=== PATIENT | male | born 1990 | race African-American/Black ===

== ENCOUNTER 2023-02-28 17:03 | Emergency (ER) | payer OTHER ==
[~2023-02-28] VITALS: Ht 180.3 cm; Wt 86.2 kg
--- NOTE | 2023-02-28 17:55 | NUR ---
BIBSELF CC THROAT PAIN FOR 1WK. CLAIMS GEN BODY ACHE FEBRILE TOOK TYLENOL. PT VOMITED NO LOSS OF APPETITE. AT HOME PT CLAIMS TEMP IS 101.3. NO S/S CR DISTRESS. DR BRAUN MADE AWARE. PT PUT ON MONITIOR AND PULSE. NURSING CARE DONE. AWAITING LAURA EMD ORDERS
--- NOTE | 2023-02-28 18:15 | NUR ---
iv inserted BLD COLLECTED SENT TO LAB
[2023-02-28 18:22] LABS: BASOPHILS % (AUTO) 0.4 % (0.0-2.0); EOSINOPHILS % (AUTO) 1.5 % (0.0-6.0); HEMATOCRIT 41 % (39-51); HEMOGLOBIN 13.3 g/dL (13.5-17.5); LYMPHOCYTES # (AUTO) 2.5 K/uL (0.8-4.8); LYMPHOCYTES % (AUTO) 28.7 % (20.0-44.0); MEAN CORPUSCULAR HGB CONC 33 g/dl (31.0-36.0); MEAN CORPUSCULAR VOLUME 92 fL (80-96); MONOCYTES # (AUTO) 0.5 K/uL (0.1-1.30); MONOCYTES % (AUTO) 6.1 % (2.0-12.0); NEUTROPHILS # (AUTO) 5.6 K/uL (1.8-8.9); NEUTROPHILS % (AUTO) 63.3 % (43.0-81.0); PLATELET COUNT (AUTO) 217 K/uL (150-450); RED BLOOD CELL COUNT(AUTO) 4.48 MIL/uL (4.5-6.0); WHITE BLOOD COUNT (AUTO) 8.8 K/uL (4.3-11.0)
[2023-02-28] MEDS ORDERED: FAMOTIDINE/PF INJ 20 MG/2 ML VIAL IV ONE ×2 (18:25→18:30)
[2023-02-28] MEDS ORDERED: ONDANSETRON HCL/PF 4 MG/2 ML VIAL ONE (18:25)
[2023-02-28] MEDS ORDERED: ONDANSETRON HCL/PF 4 MG/2 ML VIAL IVP ONE (18:30)
[2023-02-28] MEDS ORDERED: IV NS 0.9% 1,000 ML BAG IV ONE (18:30)
[2023-02-28 18:33] LABS: CALCIUM, SERUM 9.1 mg/dL (8.5-10.1); CREATININE 1.3 mg/dL (0.6-1.3); POTASSIUM 3.6 mmol/L (3.5-5.1)
[2023-02-28 18:38] LABS: ALBUMIN 3.7 g/dL (3.4-5.0); BILIRUBIN,DIRECT 0.1 mg/dL (0.0-0.2); BILIRUBIN,TOTAL 0.4 mg/dL (0.2-1.0)
[2023-02-28] MEDS ORDERED: ONDA4TAB5 PO (19:09)
--- NOTE | 2023-02-28 19:18 | NUR ---
PT SIGNED DISCHRGE. SAID SB FINISH FLUID THEN MAY GO HOME
--- NOTE | 2023-02-28 19:41 | NUR ---
IV removed. Catheter intact and site benign. Pressure and 4x4 applied to site. No bleeding noted.Patient discharged to home in stable condition. Written and verbal after care instructions given. Patient verbalizes understanding of instruction.
[2023-02-28 19:42] VITALS: BP 120/68
== END 2023-02-28 19:41 | disposition home or self-care (01) ==
LOC: ER 17:15
DX: R11.2 Nausea with vomiting, unspecified (principal); R10.13 Epigastric pain; Z60.2 Problems related to living alone
CPT/HCPCS: 99284; 96374; 96361; 96375; 85025; 80048; 83690; 80076; 36415; J3490; J2405; J7030; A4223